=== PATIENT | female | born 1995 | race Asian ===

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

== ENCOUNTER 2017-07-06 21:16 | Emergency (ER) | payer OTHER ==
[2017-07-06] MEDS ORDERED: NS 0.9% 1000 ML* 1,000 ML IV ONE (21:32)
[2017-07-06] MEDS ORDERED: Metoclopramide IV* 5 MG/ML 2 ML VIAL IV ONE (21:32)
[2017-07-06 22:11] LABS: ABS Basophils 0.2 10^3/ul (0-0.2); ABS Eosinophils 0 10^3/ul (0-0.6); ABS Lymphocytes 2.3 10^3/ul (1.0-4.8); ABS Monocytes 0.7 10^3/ul (0-0.8); ABS Nucleated RBC 0 10^3/ul; Eosinophil % 0.3 % (0-6); Hematocrit 36 % (35-47); Hemoglobin 12.7 g/dl (12.0-16.0); Lymphocyte % 16.3 % (25-47); Mean Corpuscular HGB Conc 35 g/dl (31-36); Mean Corpuscular Hemoglobin 31 pg (27-31); Mean Corpuscular Volume 89 fL (80-97); Mean Platelet Volume 7.1 um3 (7.4-10.4); Nucleated Red Blood Cells % 0; Platelet Count 218 10^3/ul (150-450); Red Blood Count 4.08 10^6/ul (4.0-5.4); Red Cell Distribution Width 14 % (10.5-15); White Blood Count 14.3 10^3/ul (3.5-10.8)
[2017-07-06 22:35] LABS: EGFR Non-African American 162.7 (>60)
[2017-07-06 23:03] VITALS: BP 133/88
[2017-07-06] MEDS ORDERED: Potassium Chlor TAB* 20 MEQ TAB.ER PO ONE (23:13)
--- NOTE | 2017-07-07 06:18 | ED ---
Oneil Castillo Rebecca, scribed for Antonette Padgett MD on 07/06/17 at 2203 . Substance Abuse/Use - HPI Summary HPI Summary: Pt is a 21 y/o F BIBA who presents to ED s/p EtOH, leidy, and marijuana use. Pt reports that she stopped drinking at 1100, took leidy at 1100 and smoked marijuana at approximately 1300. Additionally c/o N/V, FOSS, and lightheadedness upon sitting up. FOSS is described as pressure and has improved since onset. Denies abdominal pain. Denies trauma. - History Of Current Complaint Chief Complaint: EDSubstanceAbuse Stated Complaint: OVERDOSE Time Seen by Provider: 07/06/17 21:26 Hx Obtained From: Patient Ingestion History: Type/Name Of Drug - EtOH, leidy, marijuana, Approximate Time Of Ingestion - 1100; 1300 Overdose Characteristics: Oral Aggravating Factor(s): Other - Sitting up - lightheadedness Alleviating Factor(s): Nothing Associated Signs And Symptoms: Nausea, Vomiting - Allergies/Home Medications Allergies/Adverse Reactions: Allergies Allergy/AdvReac Type Severity Reaction Status Date / Time amoxicillin Allergy Unknown Verified 07/06/17 21:28 Reaction Details Home Medications: Home Medications Norgestimate-Ethinyl Estradiol [Sprintec 28 0.25-35 mg-Mcg] 1 tab PO DAILY 07/06 [History Confirmed 07/06/17] PMH/Surg Hx/FS Hx/Imm Hx Previously Healthy: Yes Endocrine/Hematology History: Denies: Hx Diabetes Cardiovascular History: Denies: Hx Hypertension Infectious Disease History: No Infectious Disease History: Denies: Traveled Outside the [place] in Last 30 Days - Family History Known Family History: Negative: Hypertension, Diabetes - Social History Alcohol Use: Occasionally Hx Substance Use: Yes Substance Use Type: Reports: Marijuana Hx Tobacco Use: No Smoking Status (MU): Never Smoked Tobacco Review of Systems Positive: Other - s/p EtOH, marjiuana, and leidy use Positive: Vomiting, Nausea Neurological: Other - Lightheadedness Positive: Headache All Other Systems Reviewed And Are Negative: Yes Physical Exam - Summary Physical Exam Summary: GENERAL: ~Patient is a well developed and nourished F who is lying comfortable in the stretcher. ~Patient is not in any acute respiratory distress. HEAD AND FACE: Normocephalic EYES: PERRLA, EOMI x 2. EARS: Hearing grossly intact. MOUTH: Oropharynx within normal limits. NECK: Supple, trachea is midline, no adenopathy, no JVD, no carotid bruit. CHEST: Symmetric, no tenderness at palpation LUNGS: Clear to auscultation bilaterally. No wheezing or crackles. CVS: Regular rate and rhythm, S1 and S2 present, no murmurs or gallops appreciated. ABDOMEN: Soft, non-tender. Bowel sounds are normal. No abdominal abnormal pulsations. EXTREMITIES: Full ROM in all major joints, no edema, no cyanosis or clubbing. NEURO: Alert and oriented x 3. No acute neurological deficits. Speech is normal and follows commands. SKIN: Dry and warm Triage Information Reviewed: Yes Vital Signs On Initial Exam: Initial Vitals Temp Pulse Resp BP Pulse Ox 99.2 F 79 18 147/96 97 07/06/17 21:28 07/06/17 21:28 07/06/17 21:28 07/06/17 21:28 07/06/17 21:28 Vital Signs Reviewed: Yes Diagnostics - Vital Signs Vital Signs Temp Pulse Resp BP Pulse Ox 07/06/17 21:28 99.2 F 79 18 147/96 97 - Laboratory Result Diagrams: 07/06/17 22:00 07/06/17 22:00 Lab Statement: Any lab studies that have been ordered have been reviewed, and results considered in the medical decision making process. Re-Evaluation - Re-Evaluation First Eval Re-Evaluation Time: 23:55 Change: Improved - Patient is feeling a lot better. Course/Dx - Course Assessment/Plan: Pt is a 21 y/o F BIBA who presents to ED s/p EtOH, leidy, and marijuana use c/o N/V, improving pressure FOSS, and lightheadedness upon sitting up without trauma Denies trauma. Her workup is remarkable for a sodium of 127 and a potassium of 3.1. She did have mild leukocytosis, a WBC of 14.3. Pt was given 1 L of IV fluids and Reglan and reports feeling much better. Pt was D/C home in stable condition under the care of her friend who is sober and was at bedside the entire time. - Diagnoses Provider Diagnoses: Nausea Discharge - Sign-Out/Discharge Documenting (check all that apply): Discharge/Admit/Transfer - Discharge. - Discharge Plan Condition: Stable Disposition: HOME Patient Education Materials: Acute Nausea and Vomiting (ED) Referrals: [facility] [Medical Doctor] - 3 Days Additional Instructions: Return to the ED if symptoms continued or worsened. The documentation as recorded by the Oneil mackenzie Rebecca accurately reflects the service I personally performed and the decisions made by , Antonette Padgett MD.
== END 2017-07-07 00:26 | disposition home or self-care (01) ==
LOC: ED 21:16
DX: R11.2 Nausea with vomiting, unspecified (principal); R51 Headache; R42 Dizziness and giddiness; Z72.89 Other problems related to lifestyle; F12.90 Cannabis use, unspecified, uncomplicated; F19.90 Other psychoactive substance use, unspecified, uncomplicated; Z88.0 Allergy status to penicillin
CPT/HCPCS: 36415; 80053; 80307; 80320; 84702; 85025; 99283; A9270-GY; G0480; J2765